=== PATIENT | female | born 1965 | race Caucasian/White ===

== ENCOUNTER 2018-06-05 18:30 | Emergency (ER) | payer BC, OTHER ==
[~2018-06-05] VITALS: Ht 165.1 cm; Wt 88.5 kg
[~2018-06-05 18:30] MED LIST: BUPROPION HCL100 MG PO; CICLOPIROX 8%34.6 ML TOP; CYMBALTA30 MG PO; ECONAZOLE NITRA15 GM TOP; LEVOTHYROXINE75 MCG PO; METFORMIN HCL500 MG PO
--- OUTSIDE RECORDS SUMMARY | 2018-06-05 18:32 | XMS REPORT | Summary of Care ---
Author Author [facility] [place] Organization [facility] [place] Address Unknown Phone Unavailable Encounter HQ Encntr_alias(FIN) [id number] Date(s): 11/30/16 - 11/30/16 [facility] [place] [address] [place] [address] [phone] Discharge Disposition: Home or Self Care Attending Physician: Gilbert De MD Vital Signs No data available for this section Problem List No data available for this section Allergies, Adverse Reactions, Alerts No data available for this section Medications No data available for this section Results No data available for this section Immunizations No data available for this section Procedures No data available for this section Social History No data available for this section Assessment and Plan No data available for this section
--- OUTSIDE RECORDS SUMMARY | 2018-06-05 18:32 | XMS REPORT | Summary of Care ---
Author Author Elena Jones M.A. Organization Unknown Address [facility] Phone Unavailable Care Team Providers Care Specification Manager Name Role Phone Elena Jones M.A. Unavailable Unavailable BARB ROSA Unavailable Unavailable ROSAS JACOME [place], SUSY [place] Unavailable Unavailable SUSY PILLAI M.D. Unavailable NEELIMA HUGHES [place], BARB Unavailable Unavailable Unavailable Unavailable Functional Status Name Dates Details Functional status health issues are not documented Status: Name Dates Details Cognitive status health issues are not documented Status: Problems Name Dates Details Hyperglycemia (790.29, R73.9) Status: Active Idiopathic thrombocytopenic purpura (287.31, D69.3) Status: Active Onychomycosis of toenail (110.1, B35.1) Status: Active History of cervical cancer (V10.41, Z85.41) Status: Active Generalized anxiety disorder (300.02, F41.1) Status: Active Breast cancer screening (V76.10, Z12.31) Status: Active Symptomatic menopausal or female climacteric states (627.2, N95.1) Status: Active Colon cancer screening (V76.51, Z12.11) Status: Active Portal hypertension (572.3, K76.6) Status: Active Morbid obesity (278.01, E66.01) Status: Active Dyspnea on exertion (786.09, R06.09) Status: Active Asthma, unspecified asthma severity, unspecified whether complicated, unspecified whether persistent (493.90, J45.909) Status: Active Chest pressure (786.59, R07.89) Status: Active History of DVT (deep vein thrombosis) (V12.51, Z86.718) Status: Active Abnormal EKG (794.31, R94.31) Status: Active Diabetes mellitus type 2, uncontrolled (250.02, E11.65) Status: Active Elevated LFTs (790.6, R79.89) Status: Active Fatty liver (571.8, K76.0) Status: Active Hypothyroidism (244.9, E03.9) Status: Active Colonic adenoma (211.3, D12.6) Status: Active Diabetic eye exam (V72.0, E11.9) Status: Active Refused influenza vaccine (V64.06, Z28.21) Status: Active Medications Name Dates Details BuPROPion HCl - 100 MG Oral Tablet TAKE 2 TABLET ONCE Active DULoxetine HCl - 30 MG Oral Capsule Delayed Release Particles TAKE ONE CAPSULE BY MOUTH EVERY DAY needs office visit * Quantity: 30 Refills: 5 NEELIMA P.A., BARB * Start : 26-Apr-2016 Active Levothyroxine Sodium 150 MCG Oral Tablet TAKE ONE TABLET BY MOUTH ONCE DAILY * Quantity: 30 Refills: 5 NEELIMA P.A., BARB * Start : 26-Apr-2016 Active Econazole Nitrate 1 % External Cream APPLY AND GENTLY MASSAGE INTO AFFECTED AREA(S) TWICE DAILY. * Quantity: 1 Refills: 1 NEELIMA P.A., BARB * Start : 26-Apr-2016 Active 85 GM Tube Ciclopirox 8 % External Solution Apply to affected area at bedtime. * Quantity: 1 Refills: 3 NEELIMA P.A., BARB * Start : 26-Apr-2016 Active 6.6 ML Bottle MetFORMIN HCl - 1000 MG Oral Tablet Take 1 tablet every 12 hours. * Quantity: 60 Refills: 1 NEELIMA P.A., BARB * Start : 26-Apr-2016 Active Januvia 100 MG Oral Tablet TAKE 1 TABLET ONCE DAILY. * Quantity: 30 Refills: 1 NEELIMA P.A., BARB * Start : 01-May-2017 Active Levemir FlexTouch 100 UNIT/ML Subcutaneous Solution Pen-injector 10 units qhs, IF BS > 170 fasting increase 3 units every 3-4 days. * Quantity: 1 Refills: 0 NEELIMA P.A., BARB * Start : 05-May-2017 Active 5 x 3 ML Pen BD Pen Needle Mini U/F 31G X 5 MM 1 a day * Quantity: 100 Refills: 0 NEELIMA P.A., BARB * Start : 05-May-2017 Active NovoLIN N ReliOn 100 UNIT/ML Subcutaneous Suspension Inject 10 units BID * Quantity: 1 Refills: 0 NEELIMA P.A., BARB * Start : 05-May-2017 Active 10 ML Vial Insulin Syringe 30G X 5/16" 0.5 ML USE DIRECTED. * Quantity: 100 Refills: 0 NEELIMA P.A., BARB * Start : 05-May-2017 Active Allergies and Adverse Reactions Name Dates Details Aspirin TABS (Allergy) Status: Active Past Medical History Name Dates Details History of diabetes mellitus (V12.29, Z86.39) Status: Resolved History of Thyroid trouble (246.9, E07.9) Status: Resolved Procedures Procedure Dates Details History of Section Completed History of Hysterectomy Completed Immunization Name Dates Details Immunizations not documented Family History Name Dates Details No pertinent family history Status: Active Name Dates Details No pertinent family history Status: Active Social History Name Dates Details - Status: Name Dates Details Never smoker Vital Signs Date Test Result Details No Known Vitals to report Results Date Description Value Details [id number] [[facility]] BASIC METABOLIC PANEL W/EGFR Glucose Lvl 355 mg/dl (Above high threshold) Range: 70-99 Comments: Adult reference range values reflect the clinical guidelinesof the [place] [employer]. Blood Urea Nitrogen 9 mg/dl Range: 7-22 Creatinine Lvl 0.80 mg/dl Range: 0.50-1.40 Sodium Level 135 {mEq/l} Range: 135-145 Potassium Level 3.9 {mEq/l} Range: 3.5-5.1 Chloride Level 99 {mEq/l} Range: 95-109 Carbon Dioxide 24 {mEq/l} Range: 24-32 AGAP 15.9 {mEq/l} Range: 10.0-20.0 Calcium Level Total 9.9 mg/dl Range: 8.5-10.5 eGFR 86 {ML/MIN/1.7} Comments: The eGFR is calculated using the CKD-EPI formula. In most young, healthyindividuals the eGFR will be >90 mL/min/1.73m2. The eGFR declines with age. AneGFR of 60-89 may be normal in some populations, particularly the elderly, forwhom the CKD-EPI formula has not been extensively validated. Use of the eGFR isnot recommended in the following populations:Individuals with unstable creatinine concentrations, including patients and those with serious co-morbid conditions.Patients with extremes in muscle mass or diet.The data above are obtained from the National Kidney Disease Education Program(NKDEP) which additionally recommends that when the eGFR is used in patientswith extremes of body mass index for purposes of drug dosing, the eGFR shouldbe multiplied by the estimated BMI. [[facility]] LIPID PANEL Chol 184 mg/dl Range: <=199 Trig 281 mg/dl (Above high threshold) Range: <=149 HDL Cholesterol 40 mg/dl (Below low threshold) Range: >=61 LDL 88 mg/dl Range: <=99 CHD Risk 4.60 Range: 3.90-5.80 VLDL 56 [QL] HEMOGLOBIN A1c Hemoglobin A1c 10.0 % (Above high threshold) Range: <=5.6 [QL] MICROALBUMIN, RANDOM URINE (W/O CREATININE) Urine Microalbumin 934.0 mg/L Plan of Care Name Dates Details Planned Observations Planned Goals not documented Instructions Name Dates Details Instructions not documented Encounters Appointment; BARB ORTEZ P.A. Encounter Diagnosis: Problem not documented On: 26-Apr-2016 10:30 Appointment; BARB ORTEZ PNy Encounter Diagnosis: Problem not documented On: 18-Jul-2016 16:00 Appointment; BARB ORTEZ P.A. Encounter Diagnosis: Problem not documented On: 20-Nov-2016 10:30 Appointment; HARIKA GUILLEN M.D. Encounter Diagnosis: Problem not documented On: 17-Dec-2016 16:00 Appointment; ASHOK HARDEN P.A. Encounter Diagnosis: Problem not documented On: 20-Jan-2017 13:30 Appointment; BARB ORTEZ P.A. Encounter Diagnosis: Problem not documented On: 05-Mar-2017 10:15
--- OUTSIDE RECORDS SUMMARY | 2018-06-05 18:32 | XMS REPORT | Summary of Care ---
Author Author [facility] Organization [facility] Address Unknown Phone Unavailable Encounter [place](ANI) [id number] Date(s): 01/10/17 - 01/10/17 [facility] [address] [place] [address]- Discharge Disposition: Home or Self Care Attending Physician: Roberto Coleman MD Referring Physician: Roberto Coleman MD Vital Signs 1 2 3 Most recent to oldest [Reference Range]: 162.56 cm (01/09/17 4:20 PM) Height 133/91 mmHg (01/10/17 7:51 AM) 132/92 mmHg (01/10/17 7:40 AM) 120/89 mmHg (01/10/17 7:24 AM) Blood Pressure [90-140/60-90 mmHg] 10 BRMIN *LOW* (01/10/17 7:51 AM) 15 BRMIN (01/10/17 7:40 AM) 15 BRMIN (01/10/17 7:24 AM) Respiratory Rate [14-20 BRMIN] 92.727 kg (01/09/17 4:20 PM) Weight 35.09 m2 (01/09/17 4:20 PM) Body Mass Index Problem List Condition Effective Dates Status Health Status Informant Diabetes(Confirmed) Resolved History of Resolved hypothyroidism(Confi rmed) Hx of cervical Resolved cancer(Confirmed) Portal Resolved hypertension(Confirm ed) Fatty Resolved liver(Confirmed) Allergies, Adverse Reactions, Alerts Substance Reaction Severity Status aspirin Active Medications buPROPion 100 mg oral tablet 100 mg=1 tab, PO, BID, 0 Refill(s) Start Date: 01/09/17 Status: Ordered ciclopirox topical 8% solution 1 appl, TOP, Daily, 0 Refill(s) Start Date: 01/09/17 Status: Ordered DULoxetine 30 mg oral delayed release capsule 30 mg=1 cap, PO, BID, 0 Refill(s) Start Date: 01/09/17 Status: Ordered Econazole Nitrate 1 appl, TOP, Daily, 0 Refill(s) Start Date: 01/09/17 Status: Ordered levothyroxine 150 mcg (0.15 mg) oral tablet 150 microgram=1 tab, PO, Daily, 0 Refill(s) Start Date: 01/09/17 Status: Ordered metFORMIN 1000 mg oral tablet 1,000 mg=1 tab, PO, BID, 0 Refill(s) Start Date: 01/09/17 Status: Ordered sodium chloride 0.9% 1000 ml INJ 1,000 mL 1,000 mL, Rate: 25 ml/hr, Infuse over: 40 hr, Route: IV, Dosing Weight 92.727 kg , Total Volume: 1,000, Start date: 01/10/17 6:46:00 CDT, Duration: 1 day, Stop d ate: 01/11/17 6:45:00 CDT Start Date: 01/10/17 Stop Date: 01/10/17 Status: Discontinued Results No data available for this section Immunizations No data available for this section Procedures Procedure Date Related Diagnosis Body Site Abdominal hysterectomy Caesarean section Cholecystectomy Social History Social History Type Response Alcohol Past Smoking Status Never smoker; Exposure to Tobacco Smoke None; Cigarette Smoking Last 365 Days No; Reg Smoking Cessation Counseling No Assessment and Plan No data available for this section
--- OUTSIDE RECORDS SUMMARY | 2018-06-05 18:32 | XMS REPORT | Continuity of Care Document ---
Author Author [facility] Organization Interface Address Unknown Phone Unavailable Problems Problem Status Onset Date Classification Date Reported Comments Source UNK Active 12/18/2016 [facility] Z12.31 - ENCNTR SCREEN MAMMOGRAM FOR MA Active 11/30/2016 ETHAN [place] K76.0 - "FATTY (CHANGE OF) LIVER, NOT E" Active 07/22/2016 [facility] Diabetes Resolved Problem 01/13/2017 [facility] History of hypothyroidism Resolved Problem 01/13/2017 [facility] Hx of cervical cancer Resolved Problem 01/13/2017 [facility] Portal hypertension Resolved Problem 01/13/2017 [facility] Fatty liver Resolved Problem 01/13/2017 [facility] Medications Medication Details Route Status Patient Instructions Ordering Provider Order Date Source sodium chloride 0.9% 1000 ml INJ 1,000 mL 1,000 mL, Rate: 25 ml/hr, Infuse over: 40 hr, Route: IV, Dosing Weight 92.727 kg, Total Volume: 1,000, Start date: 01/10/17 6:46:00 CDT, Duration: 1 day, Stop date: 01/11/17 6:45:00 CDT Inactive 01/10/2017 [facility] DULoxetine 30 mg oral delayed release capsule 30 mg=1 cap, PO, BID, 0 Refill(s) Active 01/09/2017 [facility] Econazole Nitrate 1 appl, TOP, Daily, 0 Refill(s) Active 01/09/2017 [facility] ciclopirox topical 8% solution 1 appl, TOP, Daily, 0 Refill(s) Active 01/09/2017 [facility] levothyroxine 150 mcg (0.15 mg) oral tablet 150 microgram=1 tab, PO, Daily, 0 Refill(s) Active 01/09/2017 [facility] metFORMIN 1000 mg oral tablet 1,000 mg=1 tab, PO, BID, 0 Refill(s) Active 01/09/2017 [facility] buPROPion 100 mg oral tablet 100 mg=1 tab, PO, BID, 0 Refill(s) Active 01/09/2017 [facility] Allergies, Adverse Reactions, Alerts Substance Category Reaction Severity Reaction type Status Date Reported Comments Source aspirin Assertion Drug allergy Active [facility] Immunizations Immunization Date Given Site Status Last Updated Comments Source Results Order Name Results Value Reference Range Date Interpretation Comments Source Breast Mammo Scrn GENEVIEVE incl CAD MA Breast Mammo Scrn GENEVIEVE incl CAD MA - BREAST MAMMO SCRN GENEVIEVE INCL CAD MA BILATERAL DIGITAL SCREENING MAMMOGRAM WITH CAD: 11/30/2016 CLINICAL: /Z12.31. Current study was evaluated with a Computer Aided Detection (CAD) system. No prior exams were available for comparison. The tissue of both breasts is almost entirely fat. There are benign calcifications in both breasts. No significant masses, calcifications, or other findings are seen in either breast. IMPRESSION: BENIGN There is no mammographic evidence of malignancy. A 1 year screening mammogram is recommended. Professional services are provided by the [facility]. Cameron Beatty M.D. cm/penrad:12/12/2016 12:14:33 Casing In Line Feeder: Stephenie Rossi [facility] This exam was dictated and interpreted by [id number] for BURT De La Rosa. letter sent: Normal exam Mammogram BI-RADS: 2 Benign 11/30/2016 - - Read by: Jarrell Bunn MD Dictated Date/time: 12/12/16 12:14 Electronically Signed by: Jarrell Bunn MD 12/12/16 12:14 FINAL REPORT BURT [place] Abdomen complete US Abdomen complete US EXAM: US ABDOMEN COMPLETE DATE: 07/24/2016 7:49 AM CDT INDICATION: K76.0 Fatty (change of) liver, not elsewhere classified,R94.5 Abnormal results of liver function studies. Right upper quadrant pain with nausea for the past 6 months. ADDITIONAL INFORMATION: History of cholecystectomy.. COMPARISON: CT scan of the abdomen of 01/04/2013. TECHNIQUE: Multiplanar grayscale and color Doppler ultrasound images of the abdomen. FINDINGS: Liver: Craniocaudal length: 19.8 cm. Enlarged. Echogenicity: Diffusely increased. Surface nodularity: None Mass (size and location): None. Portal vein: 14 mm with hepatopetal flow. Bile ducts: Common bile duct diameter: 4.6 mm. Normal. Intrahepatic ducts: Normal. Gallbladder: Surgically absent. Pancreas: No abnormalities of the visualized portions of the pancreas are demonstrated. Portions of the pancreas are obscured by overlying bowel gas. Spleen: Craniocaudal length: 20.1 cm. Enlarged. Mass or focal lesion (size and location): None. Right kidney: Size: 12.5 x 4.2 x 5.5 cm. Normal. Hydronephrosis: None. Echogenicity: Normal. Mass/Stone/Cyst (size and location): None. Left kidney: Size: 13.7 x 3.8 x 5.8 cm. Normal. Hydronephrosis: None. Echogenicity: Normal. Mass/Stone/Cyst (size and location): None. Abdominal aorta, IVC, and other vasculature: No abnormalities of the visualized portions of the abdominal aorta or inferior vena cava are seen. Splenic hilar varices are demonstrated again.. Ascites: None Pleural Effusions: None IMPRESSION: 1. Nonspecific hepatomegaly and increased liver echogenicity, findings most compatible with diffuse fatty infiltration (steatosis) of the liver. This finding is stable from the prior CT exam. 2. Stable splenomegaly along with varices in the splenic hilar region and along with main portal vein dilatation are suggestive of portal hypertension. 3. Status post cholecystectomy. 07/24/2016 - - Read by: Crescencio Lo MD Dictated Date/time: 07/24/16 09:29 Electronically Signed by: Crescencio Lo MD 07/24/16 09:34 FINAL REPORT [facility] Vital Signs Vital Sign Value Date Comments Source Respitory Rate 10 01/10/2017 [facility] Systolic (mm Hg) 133 01/10/2017 [facility] Diastolic (mm Hg) 91 01/10/2017 [facility] Systolic (mm Hg) 132 01/10/2017 [facility] Diastolic (mm Hg) 92 01/10/2017 [facility] Respitory Rate 15 01/10/2017 [facility] Systolic (mm Hg) 120 01/10/2017 [facility] Diastolic (mm Hg) 89 01/10/2017 [facility] Respitory Rate 15 01/10/2017 [facility] BMI Calculated 35.09 01/09/2017 [facility] Height 162.56 cm 01/09/2017 [facility] Weight 92.727 01/09/2017 [facility] Encounters Location Location Details Encounter Type Encounter Number Reason For Visit Attending Provider ADM Date DC Date Status Source [facility] [place] [facility] [id number] Gilbert De 11/30/2016 12/01/2016 ETHAN [place] [facility] Bed[facility] Outpatient [id number] Roberto Coleman 01/10/2017 01/10/2017 [facility] Procedures Procedure Code Date Perfomer Comments Source Abdominal hysterectomy [id number] [facility] Caesarean section [id number] [facility] Cholecystectomy [id number] [facility]
--- OUTSIDE RECORDS SUMMARY | 2018-06-05 18:32 | XMS REPORT ---
Author Author [facility] Address Unknown Phone Unavailable Care Team Providers Care Can Reconditioner Name Role Phone Sergio BRICEÑO Unavailable Unavailable Problems This patient has no known problems. Allergies, Adverse Reactions, Alerts This patient has no known allergies or adverse reactions. Medications This patient has no known medications. Results Test Description Test Time Test Comments Text Results Atomic Results Result Comments CHEST SINGLE (PORTABLE) [place] [address] Patient Name: AVI BAUTISTA MR #: [id number] : 1965 Age/Sex: 51/F Req #: [id number] Adm Physician: Ordered by: EMANUEL BRICEÑO MD Report #: [id number] Location: ER Room/Bed: Procedure: [id number] DX/CHEST SINGLE (PORTABLE) Exam Date: 01/20/17 Exam Time: 1550 REPORT STATUS: Signed PROCEDURE: A single AP view of the chest. COMPARISON: DX, CHEST SINGLE, 02/15/2008, 9:33. INDICATIONS: CHEST PAIN, SHORNTESS OF BREATH FINDINGS: Lines/tubes: None. Lungs: Mild bilateral suboptimal inspiration. There is no evidence of pneumonia or pulmonary edema. Pleura: There is no pleural effusion or pneumothorax. Heart and mediastinum: The heart and the mediastinum are unremarkable. Bones: No acute bony abnormality. IMPRESSION: 1. No acute cardiopulmonary disease. Benito Guy M.D. Dictated by: Benito Guy M.D. on 01/20/2017 at 16:25 Electronically approved by: Benito Guy M.D. on 01/20/2017 at 16:25 Dictated By: TIARRA GUY MD, MD [id number] Transcribed By: CHASE on 01/20/17 3638 COPY TO: EMANUEL BRICEÑO MD
== END 2018-06-05 19:25 | disposition home or self-care (01) ==
LOC: FSED 18:30
DX: R06.00 Dyspnea, unspecified (principal); G44.89 Other headache syndrome; R11.0 Nausea
CPT/HCPCS: 99282